=== PATIENT | female | born 1975 | race Caucasian/White ===

== ENCOUNTER 2016-08-24 14:11 | Observation (INO) ==
[2016-08-24] MEDS ORDERED: Nitroglycerin 0.4 MG TAB.SUBL SL ONE (14:15)
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
[2016-08-24 14:36] LABS: Basophils % 0.3 %; Eosinophils # 0.2 K/mcL (0.0-0.6); Eosinophils % 1.6 %; Hemoglobin 15.6 g/dL (11.5-15.4); Immature Granulocytes % 0.4 % (0-4); Lymphocytes # 2.4 K/mcL (0.6-4.6); Lymphocytes % 20.6 %; Mean Corpuscular HGB Conc 33.2 g/dL (31.6-35.5); Mean Corpuscular Hemoglobin 29.3 pg (28.0-33.3); Mean Corpuscular Volume 88.3 fL (83.0-100.0); Mean Platelet Volume 9.8 fL (9.4-12.4); Monocytes # 0.6 K/mcL (0.0-1.3); Monocytes % 5.4 %; Neutrophils # 8.2 K/mcL (1.6-8.9); Platelet Count 268 K/mcL (140-400); Red Blood Count 5.32 M/mcL (3.82-4.97); Red Cell Distribution Width 15.2 % (11.5-14.5); Segmented Neutrophils % 71.7 %
[2016-08-24] MEDS ORDERED: Nitroglycerin 1 INCH/GM PACKET TP ONE (14:36)
[2016-08-24 14:41] LABS: INR 1.2; Prothrombin Time 12.7 Seconds (9.4-12.1)
[2016-08-24 14:44] LABS: Activated Partial Thrombo Time 31.7 Seconds (26.0-36.0)
[2016-08-24 14:50] LABS: BUN/Creatinine Ratio 8 (6-26); Blood Urea Nitrogen 6 mg/dL (7-20); Calcium 9.5 mg/dL (8.6-10.8); Carbon Dioxide 23 mEq/L (19-29); Chloride 104 mEq/L (98-109); Glucose 218 mg/dL (70-99); Osmolality,Calculated 294 (280-300); Potassium 3.8 mEq/L (3.5-4.5); Sodium 140 mEq/L (136-145); eGFR For African Americans > 60 (> 60); eGFR For Non-African Americans > 60 (> 60)
[2016-08-24] MEDS ORDERED: Acetaminophen 325 MG TABLET PO ONE (15:45)
[2016-08-24] MEDS ORDERED: Acetaminophen 325 MG TABLET PO PRN (17:12)
[2016-08-24] MEDS ORDERED: MOM Conc 10 ML UD.LIQ PO PRN (17:12)
[2016-08-24] MEDS ORDERED: Ondansetron 4 MG/2 ML VIAL IVP PRN (17:12)
[2016-08-24] MEDS ORDERED: Naloxone 0.4 MG/ML INJ IVP PRN (17:12)
[2016-08-24 23:15] VITALS: BP 98/65
[2016-08-25] MEDS ORDERED: Nitroglycerin 1 INCH/GM PACKET TP SCH (06:00)
--- NOTE | 2016-08-25 07:29 | Electrocardiograph Report ---
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
[2016-08-25] MEDS ORDERED: Aspirin Enteric Coated 81 MG Tablet PO SCH (09:00)
[2016-08-25] MEDS ORDERED: Metoprolol XL (24 HR) Succ 25 MG TAB.ER.24H PO SCH (09:00)
== END 2016-08-25 00:15 | disposition left against medical advice (07) ==
LOC: INPPIK 14:11 → EMEROOPIK 14:11 → INPPIK 17:14
PROVIDERS: ADMIT Internal Medicine; ATTEND Internal Medicine